=== PATIENT | male | born 1980 | race African-American/Black ===

== ENCOUNTER 2018-12-20 21:55 | Emergency (ER) | payer OTHER ==
[~2018-12-20] VITALS: Ht 177.8 cm; Wt 99.8 kg
[2018-12-20 22:45] VITALS: BP 155/93
[2018-12-21] MEDS ORDERED: BACLOFEN 10 MG TAB PO ONE (00:45)
[2018-12-21] MEDS ORDERED: HYDROcodone-ACET 5/325MG TAB PO ONE (00:45)
== END 2018-12-21 01:04 | disposition home or self-care (01) ==
LOC: ER 22:02
DX: M62.838 Other muscle spasm (principal)
CPT/HCPCS: 71046; 72125; 72128; 72131; 73501

== ENCOUNTER 2024-02-05 00:02 | Emergency (ER) | payer OTHER ==
[~2024-02-05] VITALS: Ht 180.3 cm; Wt 100.6 kg
[2024-02-05] MEDS: hydrALAZINE HCL 10 MG TAB ONE (00:52)
[2024-02-05] MEDS: hydrALAZINE HCL 10 MG TAB PO ONE (00:53)
[2024-02-05 01:30] VITALS: PULSE 62; RESP 18; TEMP 97.9; O2SAT 97
[2024-02-05] MEDS: HYDROcodone-ACET 10/325MG TAB PO ONE (03:48)
[2024-02-05] MEDS ORDERED: BACDST PO (04:21)
[2024-02-05 04:40] VITALS: BP 176/97
[2024-02-05] MEDS ORDERED: AUG875T PO (04:44)
== END 2024-02-05 04:46 | disposition home or self-care (01) ==
LOC: ER 00:02
DX: S61.211A Laceration without foreign body of left index finger without damage to nail, initial encounter (principal); I10 Essential (primary) hypertension; W45.8XXA Other foreign body or object entering through skin, initial encounter; Y93.89 Activity, other specified; Y92.89 Other specified places as the place of occurrence of the external cause; Y99.8 Other external cause status
CPT/HCPCS: 12001; 73140